=== PATIENT | female | born 1995 | race Caucasian/White ===

== ENCOUNTER 2020-07-05 20:59 | Observation (INO) | payer MEDICAID ==
[~2020-07-05] VITALS: Ht 160 cm; Wt 89.8 kg
[2020-07-05] MEDS ORDERED: FERR325T6 PO (22:29)
[2020-07-05] MEDS ORDERED: PNV1TABL76 PO (22:29)
== END 2020-07-05 22:57 | disposition home or self-care (01) ==
LOC: 8 EST LDRP 20:59
PROVIDERS: ADMIT Obstetrics & Gynecology; ATTEND Obstetrics & Gynecology
DX: O13.3 Gestational [pregnancy-induced] hypertension without significant proteinuria, third trimester (principal); Z3A.33 33 weeks gestation of pregnancy
CPT/HCPCS: 59025; G0378; 99281

== ENCOUNTER 2020-07-10 12:23 | Observation (INO) | payer MEDICAID ==
[~2020-07-10] VITALS: Ht 160 cm; Wt 89.8 kg
[~2020-07-10 12:23] MED LIST: FERR325T6 PO; PNV1TABL76 PO
[2020-07-10] MEDS ORDERED: PREN1TAB22 PO (12:57)
[2020-07-10] MEDS ORDERED: LACTATED RINGERS 1,000 ML IV SCH (13:15)
[2020-07-10 14:04] LABS: CLARITY URINE CLOUDY (CLEAR); COLOR URINE DARK YELLOW (YELLOW); KETONES URINE TRACE (NEGATIVE); LEUKOCYTE ESTERASE URINE 2+ (NEGATIVE); NITRITE URINE NEGATIVE (NEGATIVE); OCCULT BLOOD URINE NEGATIVE (NEGATIVE); PH URINE 5.5 (4.5-8.0); PROTEIN URINE TRACE (NEGATIVE); SPECIFIC GRAVITY URINE 1.026 (1.005-1.030); UROBILINOGEN URINE 0.2 E.U./dL (0.2-1.0)
[2020-07-10 14:05] LABS: BASOPHILS % 0.8 % (0.0-2.0); EOSINOPHILS % 1.8 % (0.0-5.0); HEMATOCRIT. 35.3 % (36.0-48.0); HEMOGLOBIN. 12.1 g/dL (12.0-16.0); MEAN CORPUSCULAR HEMOGLOBIN 28.9 pg (28.0-32.0); MEAN CORPUSCULAR VOLUME 84.1 fL (81.0-99.0); MEAN PLATELET VOLUME 8.9 fl (7.4-10.4); MONOCYTES % 5.3 % (2.0-8.0); NEUTROPHILS % 71.1 % (40.0-76.0); PLATELET 295 x1000/uL (130-400)
[2020-07-10 14:16] LABS: D-DIMER 1.26 mg/L FEU (<0.50); PARTIAL THROMBOPLASTIN TIME 29.3 sec (23.4-31.0); PROTHROMBIN TIME 10.2 sec (9.6-11.0)
[2020-07-10 14:21] LABS: CHLORIDE 107 mEq/L (98-107)
[2020-07-10] MEDS ORDERED: CEFAZOLIN 2,000 MG in DEXT 5% WATER 100 ML IV SCH (14:45)
== END 2020-07-10 15:25 | disposition home or self-care (01) ==
LOC: 8 EST LDRP 12:23
PROVIDERS: ADMIT Obstetrics & Gynecology; ATTEND Obstetrics & Gynecology
DX: O13.3 Gestational [pregnancy-induced] hypertension without significant proteinuria, third trimester (principal); O26.893 Other specified pregnancy related conditions, third trimester; R00.2 Palpitations; Z3A.33 33 weeks gestation of pregnancy
CPT/HCPCS: 36415; 59025; 80053; 81003; 84550; 85025; 85379; 85384; 85610; 85730; 96361; 96365; G0378; J0690; J7060; 96360; 99281

== ENCOUNTER 2020-08-09 14:28 | Inpatient (IN) | payer MEDICAID ==
[~2020-08-09] VITALS: Ht 160 cm; Wt 92.5 kg
[~2020-08-09 14:28] MED LIST changes: +PREN1TAB22 PO
[2020-08-09] MEDS ORDERED: NALOXONE HCL 0.4 MG/ML 1ML VIAL IM PRN (16:00)
[2020-08-09] MEDS ORDERED: METHYLERGONOVINE MALEATE 0.2 MG/ML IM PRN (16:00)
[2020-08-09] MEDS ORDERED: LIDOCAINE HCL 1% 20ML VIAL (Pyxis) INJ INFIL SCH (16:00)
[2020-08-09] MEDS ORDERED: BUTORPHANOL TARTRATE 2 MG/ML VIAL IV PRN (16:00)
[2020-08-09 16:17] LABS: BASOPHILS % 0.5 % (0.0-2.0); EOSINOPHILS % 1.3 % (0.0-5.0); HEMATOCRIT. 32.8 % (36.0-48.0); HEMOGLOBIN. 11.3 g/dL (12.0-16.0); LYMPHOCYTES % 24.2 % (20.0-50.0); MEAN CORPUSCULAR HEMOGLOBIN 28.2 pg (28.0-32.0); MEAN CORPUSCULAR VOLUME 81.9 fL (81.0-99.0); MONOCYTES % 6.3 % (2.0-8.0); NEUTROPHILS % 67.7 % (40.0-76.0); PLATELET 284 x1000/uL (130-400); RED CELL DISTRIBUTION WIDTH 13.9 % (11.6-14.6)
[2020-08-09 16:19] LABS: COLOR URINE YELLOW (YELLOW); KETONES URINE NEGATIVE (NEGATIVE); LEUKOCYTE ESTERASE URINE 1+ (NEGATIVE); NITRITE URINE NEGATIVE (NEGATIVE); OCCULT BLOOD URINE NEGATIVE (NEGATIVE); PROTEIN URINE TRACE (NEGATIVE); SPECIFIC GRAVITY URINE 1.025 (1.005-1.030); UROBILINOGEN URINE 0.2 E.U./dL (0.2-1.0)
[2020-08-09 16:20] LABS: CLARITY URINE HAZY (CLEAR)
[2020-08-09 16:22] LABS: CHLORIDE 109 mEq/L (98-107)
[2020-08-09] MEDS ORDERED: AMPICILLIN 2GM in NS 100ML 100 ML IV SCH (16:26)
[2020-08-09 16:29] LABS: INR 0.9; PARTIAL THROMBOPLASTIN TIME 27.5 sec (23.4-31.0)
[2020-08-09] MEDS: LACTATED RINGERS 1,000 ML IV SCH ×2 (16:37→21:40)
[2020-08-09] MEDS: LABETALOL HCL 200MG TABLET PO SCH ×2 (16:37→21:51)
[2020-08-09 16:49] LABS: *COCAINE SCREEN URINE NEGATIVE (NEGATIVE); METHADONE URINE SCREEN NEGATIVE (NEGATIVE); OPIATES URINE SCREEN NEGATIVE (NEGATIVE)
[2020-08-09 16:50] LABS: *AMPHETAMINES SCREEN URINE NEGATIVE (NEGATIVE); *BARBITURATES SCREEN URINE NEGATIVE (NEGATIVE); *BENZODIAZEPINES SCREEN URINE NEGATIVE (NEGATIVE); CANNABINOID URINE SCREEN NEGATIVE (NEGATIVE); PHENCYCLIDINE URINE SCREEN NEGATIVE (NEGATIVE)
[2020-08-09 17:05] LABS: HEPATITIS B SURFACE ANTIGEN NEGATIVE
[2020-08-09] MEDS: MAGNESIUM 20 G PREMIX (L & D) 500 ML IV SCH (17:31)
[2020-08-09] MEDS: MISOPROSTOL 100MCG TABLET VG SCH ×2 (17:50→21:41)
[2020-08-09] MEDS ORDERED: LABETALOL HCL 5MG/ML VIAL 20ML IV PRN ×3 (21:15)
[2020-08-10] MEDS: AMPICILLIN 1,000 MG in SODIUM CHLORIDE 0.9% 50 ML IV SCH ×4 (00:11→21:19)
[2020-08-10] MEDS: MISOPROSTOL 100MCG TABLET VG SCH ×4 (02:16→14:11)
[2020-08-10] MEDS: LABETALOL HCL 200MG TABLET PO SCH ×2 (05:49→21:07)
[2020-08-10] MEDS: LACTATED RINGERS 1,000 ML IV SCH ×2 (06:38→17:43)
[2020-08-10] MEDS ORDERED: LIDOCAINE HCL 2%/EPINEPHRINE 1:100,000 20 ML VIAL INFIL ONE (08:00)
[2020-08-10] MEDS ORDERED: ROPIVACAINE HCL/PF EPIDURAL 200 ML EPI SCH (08:15)
[2020-08-10] MEDS: MAGNESIUM 20 G PREMIX (L & D) 500 ML IV SCH (10:12)
[2020-08-10] MEDS: DEXT 5%/LR + PITOCIN 20UNITS/L 1,000 ML IV SCH (19:20)
[2020-08-10 21:44] LABS: HEMATOCRIT 36.5 % (36.0-48.0); HEMOGLOBIN 12.3 g/dL (12.0-16.0); MEAN CORPUSCULAR HEMOGLOBIN 27.6 pg (28.0-32.0); MEAN CORPUSCULAR VOLUME 82.2 fL (81.0-99.0); PLATELET 310 x1000/uL (130-400); RED BLOOD CELL COUNT 4.45 mill/uL (4.2-5.4); RED CELL DISTRIBUTION WIDTH 14.2 % (11.6-14.6)
[2020-08-11] VITALS (12 sets, daily range): BP systolic 128–165; BP diastolic 69–101
[2020-08-11] MEDS ORDERED: ACETAMINOPHEN WITH CODEINE 300/30MG TABLET PO PRN (02:45)
[2020-08-11] MEDS ORDERED: GLYCERIN/WITCH HAZEL LEAF MEDICATED PAD TOP PRN (02:45)
[2020-08-11] MEDS ORDERED: BENZOCAINE/LANOLIN/ALOE VERA SPRAY TOP PRN (02:45)
[2020-08-11] MEDS ORDERED: BISACODYL 10MG SUPP PR PRN (02:45)
[2020-08-11] MEDS ORDERED: IBUPROFEN 400MG TABLET PO PRN (02:45)
[2020-08-11] MEDS ORDERED: MISOPROSTOL 200MCG TABLET RC ONE (02:45)
[2020-08-11] MEDS ORDERED: HEMORRHOIDAL SUPP PR PRN (02:45)
[2020-08-11] MEDS: DEXT 5%/LR + PITOCIN 20UNITS/L 1,000 ML IV SCH ×2 (03:06→03:12)
[2020-08-11] MEDS ORDERED: DEXT 5%/LR + PITOCIN 20UNITS/L 1,000 ML IV SCH (04:00)
[2020-08-11] MEDS: LABETALOL HCL 200MG TABLET PO SCH ×3 (04:00→08:22)
[2020-08-11] MEDS: MAGNESIUM 20 G PREMIX (L & D) 500 ML IV SCH (07:02)
[2020-08-11] MEDS: MAGNESIUM/ALUMINUM HYDROXIDE/SIMETHICONE 30ML UDC PO SCH ×3 (08:20→17:30)
[2020-08-11] MEDS: IBUPROFEN 800MG TABLET PO PRN (08:21)
[2020-08-11] MEDS: SIMETHICONE 80MG TABLET CHEW PO SCH ×3 (08:21→17:45)
[2020-08-11] MEDS: PRENATAL VIT/FE FUMARATE/FA TABLET PO SCH (08:21)
[2020-08-11] MEDS ORDERED: DOCUSATE SODIUM 100MG CAPSULE PO SCH (21:00)
[2020-08-12] MEDS: MAGNESIUM/ALUMINUM HYDROXIDE/SIMETHICONE 30ML UDC PO SCH ×2 (00:57→07:30)
[2020-08-12 00:58] VITALS: BP 146/92
[2020-08-12] MEDS: SIMETHICONE 80MG TABLET CHEW PO SCH ×2 (00:58→08:44)
[2020-08-12] MEDS: IBUPROFEN 800MG TABLET PO PRN (00:59)
[2020-08-12] MEDS ORDERED: IBUP-2030 PO (06:40)
[2020-08-12] MEDS ORDERED: LABE200T28 PO (06:40)
[2020-08-12 06:59] LABS: BASOPHILS % 0.6 % (0.0-2.0); HEMATOCRIT. 31.6 % (36.0-48.0); HEMOGLOBIN. 10.7 g/dL (12.0-16.0); MEAN PLATELET VOLUME 8.8 fl (7.4-10.4); MONOCYTES % 6.4 % (2.0-8.0); PLATELET 290 x1000/uL (130-400); RED BLOOD CELL COUNT 3.81 mill/uL (4.2-5.4); RED CELL DISTRIBUTION WIDTH 14.5 % (11.6-14.6)
[2020-08-12 07:28] VITALS: BP 146/84
[2020-08-12] MEDS ORDERED: FERROUS SULFATE 325MG TABLET PO SCH (07:30)
[2020-08-12] MEDS: PRENATAL VIT/FE FUMARATE/FA TABLET PO SCH (08:43)
[2020-08-12] MEDS: LABETALOL HCL 200MG TABLET PO SCH (08:43)
== END 2020-08-12 10:25 | disposition home or self-care (01) | DRG 560 ==
LOC: 8EST NSY 14:28 → OBSVTOIN 14:28 → 8 EST A/PP 14:45 → 8 EST LDRP 16:54 → 8EST 08-11 03:35
PROVIDERS: ADMIT Obstetrics & Gynecology; ATTEND Obstetrics & Gynecology
PROC: 3E0P7VZ Introduction of Hormone into Female Reproductive, Via Natural or Artificial Opening (ICD-10-PCS; 2020-08-10)
PROC: 10E0XZZ Delivery of Products of Conception, External Approach (ICD-10-PCS; principal; 2020-08-11)
PROC: 3E0R3BZ Introduction of Anesthetic Agent into Spinal Canal, Percutaneous Approach (ICD-10-PCS; 2020-08-11)
PROC: 00HU33Z Insertion of Infusion Device into Spinal Canal, Percutaneous Approach (ICD-10-PCS; 2020-08-11)
PROC: 0KQM0ZZ Repair Perineum Muscle, Open Approach (ICD-10-PCS; 2020-08-11)
DX: O14.94 Unspecified pre-eclampsia, complicating childbirth (principal); E66.9 Obesity, unspecified; O99.214 Obesity complicating childbirth; O13.4 Gestational [pregnancy-induced] hypertension without significant proteinuria, complicating childbirth; O69.81X0 Labor and delivery complicated by cord around neck, without compression, not applicable or unspecified; O70.1 Second degree perineal laceration during delivery; Z37.0 Single live birth; Z3A.38 38 weeks gestation of pregnancy; Z82.49 Family history of ischemic heart disease and other diseases of the circulatory system
CPT/HCPCS: 36415; 80051; 80053; 80305; 81003; 83735; 84550; 85025; 85027; 85384; 86592; 86703; 86762; 86850; 86900; 87340; 99281; G0378; J0290; J2590; J2795; J3010; J3475; J3490; J7120; A4315